=== PATIENT | male | born 1975 | race Caucasian/White ===

== ENCOUNTER 2017-06-02 10:26 | Emergency (ER) | payer SELFPAY | END 2017-06-02 11:22 | disposition home or self-care (01) | LOC: D.ER 10:26 | DX: S01.81XD Laceration without foreign body of other part of head, subsequent encounter (principal); X58.XXXD Exposure to other specified factors, subsequent encounter; Y92.029 Unspecified place in mobile home as the place of occurrence of the external cause; Z48.02 Encounter for removal of sutures ==